=== PATIENT | male | born 1975 ===

== ENCOUNTER 2017-09-13 17:12 | Emergency (ER) | payer OTHER ==
[2017-09-13 17:19] VITALS: BP 138/94; PULSE 83; RESP 18; TEMP 97.5; O2SAT 99
[2017-09-13] MEDS ORDERED: Apap-Butalbital-Caffeine 325-50-40mg Tab PO STA (17:33)
--- NOTE | 2017-09-13 17:52 | C.PDOC ---
History Of Present Illness 42 year old male presents to ED with complaints of generalized headache for 20 days. He reports headache starts in back and goes around entire head and it feels tight. He also reports feeling tightness to his neck and shoulders, worse when he bends head down. He states headache is almost every day, has been taking Advil with temporary relief. He does not have primary doctor and denies any history of migraines or this is worst headache of his life. Denies any fever , neck stiffness, injury, vision changes, dizziness. Patient wears glasses, last had eye checkup 2 months ago Time Seen by Provider: 09/13/17 17:21 Chief Complaint (Nursing): Headache History Per: Patient History/Exam Limitations: no limitations Onset/Duration Of Symptoms: Days Current Symptoms Are (Timing): Still Present Quality: Tightness Past Medical History Reviewed: Historical Data, Nursing Documentation, Vital Signs Vital Signs: Last Vital Signs Temp 97.5 F L 09/13/17 17:17 Pulse 83 09/13/17 17:17 Resp 18 09/13/17 17:17 BP 138/94 H 09/13/17 17:17 Pulse Ox 99 09/13/17 19:00 - Medical History PMH: No Chronic Diseases Surgical History: Appendectomy Family History: States: No Known Family Hx - Social History Hx Alcohol Use: Yes Hx Substance Use: No - Immunization History Hx Tetanus Toxoid Vaccination: No Hx Influenza Vaccination: No Hx Pneumococcal Vaccination: No Review Of Systems Constitutional: Negative for: Fever, Chills, Weakness, Malaise Eyes: Negative for: Vision Change, Redness ENT: Negative for: Ear Pain, Throat Pain Cardiovascular: Negative for: Chest Pain, Palpitations Respiratory: Negative for: Cough, Shortness of Breath Gastrointestinal: Negative for: Vomiting, Abdominal Pain, Diarrhea Musculoskeletal: Positive for: Neck Pain, Shoulder Pain Skin: Negative for: Rash Neurological: Positive for: Headache. Negative for: Weakness, Numbness, Dizziness Physical Exam - Physical Exam Appears: Well, Non-toxic, No Acute Distress Skin: Warm, Dry, No Rash Head: Atraumatic, Normacephalic, No Tenderness, No Swelling Eye(s): bilateral: Normal Inspection (No nystagmus), PERRL, EOMI Ear(s): Bilateral: Normal Nose: Normal Oral Mucosa: Moist Neck: Paracervical Tenderness Cardiovascular: Rhythm Regular, No Murmur Respiratory: Normal Breath Sounds, No Rales, No Rhonchi, No Wheezing Gastrointestinal/Abdominal: Soft, No Tenderness, No Guarding, No Rebound Extremity: Bilateral: Atraumatic, Normal Color And Temperature, Normal ROM Neurological/Psych: Oriented x3, Normal Speech, Normal Cranial Nerves, No Cerebellar Signs, Normal Motor, Normal Sensation Gait: Steady ED Course And Treatment O2 Sat by Pulse Oximetry: 99 (RA) Pulse Ox Interpretation: Normal Medical Decision Making Medical Decision Making: Impression: Headache Plan: CT head Fioricet Progress: CT shows no intracranial abnormality 1844 Patient re-evaluated and reports feeling better, headache has improved.He has no fever, nuchal rigidity or neuro deficits. He denies any dizziness or vision changes. I explained Ct results and provide copy of report. He feels comfortable going home and will be discharged. Recommend analgesics and to follow up with PCP or neurology for further evaluation. Disposition Counseled Patient/Family Regarding: Diagnosis, Need For Followup, Rx Given - Disposition Referrals: [facility] [Outside] [facility] [Outside] [facility] [Outside] Disposition: HOME/ ROUTINE Disposition Time: 18:59 Condition: IMPROVED Additional Instructions: Your head CT was normal Take pain medicine as needed. Drink fluids and rest Follow up with your doctor or neurologist for further evaluation and care Tu yomi CT fue normal [place] analgsicos segn sea necesario. 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 - Scribe Statement The provider has reviewed the documentation as recorded by the Joeibanushka Wilde All medical record entries made by the Scribe were at my direction and personally dictated by me. I have reviewed the chart and agree that the record accurately reflects my personal performance of the history, physical exam, medical decision making, and the department course for this patient. I have also personally directed, reviewed, and agree with the discharge instructions and disposition.
[2017-09-13] MEDS ORDERED: Apap-Butalbital-Caffeine 325-50-40mg Tab ONE (17:53)
--- NOTE | 2017-09-13 18:15 | CT ---
PROCEDURE: CT HEAD WITHOUT CONTRAST. HISTORY: Headache for 20 days, no neuro def COMPARISON: None available. TECHNIQUE: Axial computed tomography images were obtained through the head/brain without intravenous contrast. Coronal and sagittal reconstructed images. Radiation dose: Total exam DLP = 908.65 mGy-cm. This CT exam was performed using one or more of the following dose reduction techniques: Automated exposure control, adjustment of the mA and/or kV according to patient size, and/or use of iterative reconstruction technique. FINDINGS: HEMORRHAGE: No intracranial hemorrhage. BRAIN: No mass effect or edema. No atrophy or chronic microvascular ischemic changes. VENTRICLES: Unremarkable. No hydrocephalus. CALVARIUM: Unremarkable. PARANASAL SINUSES: Unremarkable as visualized. No significant inflammatory changes. MASTOID AIR CELLS: Unremarkable as visualized. No inflammatory changes. OTHER FINDINGS: None. IMPRESSION: No acute intracranial abnormalities. No significant findings to account for the clinical presentation.
== END 2017-09-13 19:15 | disposition home or self-care (01) ==
LOC: C.ER 17:12
DX: G43.909 Migraine, unspecified, not intractable, without status migrainosus (principal)

== ENCOUNTER 2017-09-15 09:38 | Observation (INO) | payer OTHER ==
[2017-09-15 10:01] VITALS: BMI 29.5
[2017-09-15 10:06] VITALS: RESP 20
[2017-09-15] MEDS ORDERED: Aspirin 325 mg EC Tablets PO STA (10:28)
--- NOTE | 2017-09-15 10:28 | C.PDOC ---
History Of Present Illness 42 y/o male presents to ED sent from clinic for further evaluation on intermittent chest pain for 15 days and headache for 20 days. Patient states last episode of "pressure" chest pain was yesterday lasting 2 hours and took Advil with minimal relief. Today patient was at clinic and reported episode of chest pain yesterday and was sent to ED. Patient states he is compliant with medication given on 09/13/17 at ED for headache but reports no improvement and currently denies vision changes, nausea, vomiting, sob or any other complaints at this time. Time Seen by Provider: 09/15/17 10:10 Chief Complaint (Nursing): Headache History Per: Patient History/Exam Limitations: no limitations Onset/Duration Of Symptoms: Days Current Symptoms Are (Timing): Still Present Past Medical History Reviewed: Historical Data, Nursing Documentation, Vital Signs Vital Signs: Last Vital Signs Temp 97.6 F 09/15/17 10:01 Pulse 73 09/15/17 10:01 Resp 20 09/15/17 10:01 BP 118/84 09/15/17 10:01 Pulse Ox 97 09/15/17 10:43 Surgical History: Appendectomy Family History: States: No Known Family Hx - Social History Hx Alcohol Use: Yes Hx Substance Use: No - Immunization History Hx Tetanus Toxoid Vaccination: No Hx Influenza Vaccination: No Hx Pneumococcal Vaccination: No Review Of Systems Constitutional: Negative for: Fever, Chills Eyes: Negative for: Vision Change Cardiovascular: Positive for: Chest Pain Respiratory: Negative for: Cough, Shortness of Breath Gastrointestinal: Negative for: Nausea, Vomiting Neurological: Positive for: Headache. Negative for: Weakness, Numbness Physical Exam - Physical Exam Appears: Non-toxic, No Acute Distress Skin: Warm, Dry, No Rash Head: Atraumatic, Normacephalic Eye(s): bilateral: Normal Inspection Oral Mucosa: Moist Neck: Normal ROM, Supple Cardiovascular: Rhythm Regular Respiratory: Normal Breath Sounds, No Rales, No Rhonchi, No Wheezing Gastrointestinal/Abdominal: Soft, No Tenderness, No Guarding, No Rebound Extremity: Normal ROM, Capillary Refill (<2 seconds) Neurological/Psych: Oriented x3, Normal Speech, Normal Cognition, Normal Cranial Nerves, Normal Motor, Normal Sensation Gait: Steady ED Course And Treatment - Laboratory Results Result Diagrams: 09/15/17 10:56 09/15/17 11:21 ECG: Interpreted By Me ECG Rhythm: Sinus Rhythm ECG Interpretation: Normal Rate From EC (BPM) O2 Sat by Pulse Oximetry: 97 (RA) Pulse Ox Interpretation: Normal Progress - Re-Evaluation Re-evaluation Note: 09/15/17 12:17 EXAM IMPROVED D/W DR CAZARES WILL ADMIT - Data Reviewed Data Reviewed: Lab, Diagnostic imaging, EKG, Old records - Continuity of Care Discussed patient case with:: Patient, Covering for PMD Medical Decision Making Medical Decision Making: Prior records reviewed: Patient had negative CT head on 09/13/17 Disposition Counseled Patient/Family Regarding: Studies Performed, Diagnosis - Disposition Disposition: HOSPITALIZED Disposition Time: 12:17 Condition: STABLE Forms: [employer] (Faroese) - POA Present On Arrival: None - Clinical Impression Clinical Impression: Headache, Chest pain - Scribe Statement The provider has reviewed the documentation as recorded by the Scribe Kristan Wilde All medical record entries made by the Scribe were at my direction and personally dictated by me. I have reviewed the chart and agree that the record accurately reflects my personal performance of the history, physical exam, medical decision making, and the department course for this patient. I have also personally directed, reviewed, and agree with the discharge instructions and disposition. Decision To Admit - Pt Status Changed To: Hospital Disposition Of: Observation - . Bed Request Type: Telemetry Admitting Physician: Levon Cazares Patient Diagnosis: Headache, Chest pain
[2017-09-15] MEDS ORDERED: Magnesium Sulfate 1 gm in D5W 1 GM/100 ML BAG IVPB STA (10:29)
[2017-09-15] MEDS ORDERED: Sodium Chloride 0.9% 1,000 ML IV STA (10:29)
[2017-09-15] MEDS ORDERED: Magnesium Sulfate 1 gm in D5W 1 GM/100 ML BAG IVPB ONE (10:40)
[2017-09-15] MEDS ORDERED: Sodium Chloride 0.9% 1,000 ML ONE (10:40)
--- NOTE | 2017-09-15 10:47 | RAD ---
HISTORY: chest pain COMPARISON: No prior. TECHNIQUE: Chest PA and lateral FINDINGS: LUNGS: No active pulmonary disease. PLEURA: No significant pleural effusion identified. No pneumothorax apparent. CARDIOVASCULAR: Normal. OSSEOUS STRUCTURES: No significant abnormalities. VISUALIZED UPPER ABDOMEN: Normal. OTHER FINDINGS: None. IMPRESSION: No active disease.
[2017-09-15 11:14] LABS: BASO # 0.1 K/uL (0.0-0.2); BASO % 1.3 % (0.0-2.0); EOS # 0.8 K/uL (0.0-0.7); EOS % 10.8 % (0.0-4.0); HEMOGLOBIN 15.6 g/dL (12.0-18.0); LYMPH # 2.2 K/uL (1.0-4.3); LYMPH % 31.9 % (20.0-40.0); MEAN CELL VOLUME 87.9 fL (80.0-94.0); MEAN CORPUSCULAR HEMOGLOBIN 29.9 pg (27.0-31.0); MEAN PLATELET VOLUME 9.9 fL (7.2-11.7); MONO # 0.6 K/uL (0.0-0.8); MONO % 8.6 % (0.0-10.0); NEUT # 3.3 K/uL (1.8-7.0); NEUT % 47.4 % (50.0-75.0); NRBC % 0.3 % (0.0-2.0); RBC 5.21 Mil/uL (4.40-5.90); RED CELL DISTRIBUTION WIDTH 13.7 % (11.5-14.5)
[2017-09-15 11:42] LABS: BLOOD UREA NITROGEN 21 mg/dL (9-20); GFR AFRICAN-AMERICAN > 60; GFR NON-AFRICAN AMERICAN > 60
--- NOTE | 2017-09-15 15:14 | CP.PCM.HP ---
History of Present Illness - History of Present Illness History of Present Illness: Code status: Full Code No advanced directives Healthcare Proxy: Mango (girlfriend) [phone] PMD: [facility] PGY-1 H&P for Dr. Kayleen Jacobs CC: Headache This is a 42 year old male with no PMHx who comes in primarily complaining of headache. Per patient, this began a month ago. Pain initially starts on the left side of the cervical paraspinals and radiate to the head and around to the forehead in a band-like fashion. Pain is described as pressure sensation. Patient states that medications such as Tylenol or Advil provide transient reductions in pain but are not long lasting. Headaches are constant. There is no associated photophobia, phonophobia, dizziness, scintillating scotomas, or other neurological symptoms. There was one episode of nausea/vomiting reported on Wednesday. Patient also complaining of right sided chest pain. This is intermittent and was first noticed on August 26. It is also described as a pressure with radiation to the right arm. Anti-inflammatory medications such as those mentioned above do not help with his chest pain. Denies diaphoresis, palpitations, dyspnea. Patient has been experiencing this pain intermittently since then with the last episode being yesterday. Patient states no inciting factor for either his headache or chest pain. PMHx: denies PSHx: Appendectomy and hernia repair Allergies: Denies, although iodine is listed as an allergy in the EMR for some reason Social: Denies tobacco and drugs. Occasionally drinks alcohol twice a month (2- 3 drinks each time). Lives with girlfriend and is unemployed. Family Hx: Father with DM Home medications: Takes Advil as needed. Present on Admission - Present on Admission Any Indicators Present on Admission: No Review of Systems - Constitutional Constitutional: absent: Chills, Fever - EENT Eyes: absent: Change in Vision Ears: absent: Decreased Hearing Nose/Mouth/Throat: absent: Nasal Congestion - Cardiovascular Cardiovascular: Chest Pain. absent: Diaphoresis, Dyspnea, Palpitations - Respiratory Respiratory: absent: Cough, Dyspnea - Gastrointestinal Gastrointestinal: Nausea (on Wednesday), Vomiting (on Wednesday). absent: Abdominal Pain - Genitourinary Genitourinary: absent: Dysuria - Musculoskeletal Musculoskeletal: Neck Pain - Integumentary Integumentary: absent: Rash - Neurological Neurological: Headaches. absent: Dizziness, Paresthesias, Weakness - Psychiatric Psychiatric: absent: Anxiety - Endocrine Endocrine: absent: Palpitations Past Patient History - Infectious Disease Hx of Infectious Diseases: None - Past Social History Smoking Status: Never Smoked - PSYCHIATRIC Hx Substance Use: No - SURGICAL HISTORY Hx Appendectomy: Yes - ANESTHESIA Hx Anesthesia: Yes Hx Anesthesia Reactions: No Hx Malignant Hyperthermia: No Meds Allergies/Adverse Reactions: Allergies Allergy/AdvReac Type Severity Reaction Status Date / Time iodine Allergy Verified 09/13/17 17:19 Physical Exam - Constitutional Appears: No Acute Distress - Head Exam Head Exam: ATRAUMATIC, NORMOCEPHALIC - Eye Exam Eye Exam: EOMI, PERRL - ENT Exam ENT Exam: Mucous Membranes Moist - Respiratory Exam Respiratory Exam: Clear to Auscultation Bilateral, NORMAL BREATHING PATTERN. absent: Rales, Rhonchi, Wheezes - Cardiovascular Exam Cardiovascular Exam: REGULAR RHYTHM, +S1, +S2 - GI/Abdominal Exam GI & Abdominal Exam: Normal Bowel Sounds, Soft. absent: Distended, Tenderness - Extremities Exam Extremities exam: Positive for: pedal pulses present. Negative for: pedal edema , tenderness - Back Exam Back exam: muscle spasm (hypertonic trapezius muscles), paraspinal tenderness ( cervical paraspinal tenderness and hypertonicity). absent: CVA tenderness (L), CVA tenderness (R) - Neurological Exam Neurological exam: Alert, CN II-XII Intact, Oriented x3 Additional comments: Positive spurling's sign on the right - Psychiatric Exam Psychiatric exam: Normal Affect, Normal Mood - Skin Skin Exam: Dry, Warm Results - Vital Signs Recent Vital Signs: Last Vital Signs Temp 97.9 F 09/15/17 13:21 Pulse 69 09/15/17 12:55 Resp 20 09/15/17 12:55 BP 125/83 09/15/17 12:55 Pulse Ox 100 09/15/17 12:55 - Labs Result Diagrams: 09/15/17 10:56 09/15/17 11:21 Labs: Laboratory Results - last 24 hr 09/15/17 09/15/17 10:56 11:21 WBC 7.0 RBC 5.21 Hgb 15.6 Hct 45.8 MCV 87.9 MCH 29.9 MCHC 34.0 RDW 13.7 Plt Count 229 MPV 9.9 Neut % (Auto) 47.4 L Lymph % (Auto) 31.9 [place] % (Auto) 8.6 Eos % (Auto) 10.8 H Baso % (Auto) 1.3 Neut # (Auto) 3.3 Lymph # (Auto) 2.2 [place] # (Auto) 0.6 Eos # (Auto) 0.8 H Baso # (Auto) 0.1 Sodium 136 Potassium 4.2 Chloride 102 Carbon Dioxide 23 Anion Gap 16 BUN 21 H Creatinine 0.8 Est GFR ( Amer) > 60 Est GFR (Non-Af Amer) > 60 Random Glucose 95 Calcium 9.0 Magnesium 2.2 Troponin I < 0.0120 Assessment & Plan - Assessment and Plan (Free Text) Plan: Atypical Chest Pain EKG NSR without any ST changes First GIL negative f/u EKG and GIL x2 Cardiology consult, Dr. Franco, help appreciated f/u lipid panel f/u TSH f/u free T4 f/u hemoglobin A1c Tension Headache likely due to musculoskeletal issues as documented in the physical exam see assessments for somatic dysfunctions below Can give Tylenol 500 mg & Aspirin 500 mg & Caffeine 130 mg all together x 1 dose If the above combination doesn't work, then can trial Reglan 10 mg IV & Benadryl 25 mg IV x 1 dose Cervical Paraspinal Hypertonicity Sub-occipital release performed with significant relief in symptoms Trapezius Hypertonicity Muscle energy to the trapezius performed with significant relief in symptoms Positive Spurling's sign This could indicate some sort of cervical radiculopathy which may be contributing to the patient's right sided chest/arm pain. Would recommend outpatient imaging to be done through the clinic. Prophylaxis Heart Healthy 2 gm sodium diet Pepcid 20 mg PO BID SCDs Discussed with Dr. Kayleen Styles PGY-1
[2017-09-15 18:58] LABS: CK-MB 0.41 ng/mL (0.0-3.38)
--- NOTE | 2017-09-15 21:01 | CP.PCM.CON ---
History of Present Illness - History of Present Illness History of Present Illness: Re: Chest pain Presented with chest pain unrelated to exertion lasting hours in the precordial region temporally related to head 'pinches' Denied any association with ingestion inspiration Effort tolerance NYHA ii Denied syncope palpitation No significant past medical history History of appendectomy and hernia repair Does not smoke Maternal uncle had coronary artery disease Exam No distress Normal venous pressures Normal carotids Clear lungs No S3; no rub Abdomen: scar/no bruits DP ++=++ EKG: sinus Labs reviewed Past Patient History - Infectious Disease Hx of Infectious Diseases: None - Past Social History Smoking Status: Never Smoked - PSYCHIATRIC Hx Substance Use: No - SURGICAL HISTORY Hx Appendectomy: Yes - ANESTHESIA Hx Anesthesia: Yes Hx Anesthesia Reactions: No Hx Malignant Hyperthermia: No Meds Allergies/Adverse Reactions: Allergies Allergy/AdvReac Type Severity Reaction Status Date / Time iodine Allergy Verified 09/13/17 17:19 - Medications Medications: Current Medications Famotidine (Pepcid) 20 mg PO BID [place] Last Admin: 09/15/17 18:09 Dose: 20 mg Results - Vital Signs Recent Vital Signs: Last Vital Signs Temp 98.0 F 09/15/17 15:15 Pulse 62 09/15/17 15:15 Resp 20 09/15/17 15:15 BP 120/75 09/15/17 15:15 Pulse Ox 98 09/15/17 15:15 - Labs Result Diagrams: 09/15/17 10:56 09/15/17 11:21 Labs: Laboratory Results - last 24 hr 09/15/17 09/15/17 09/15/17 10:56 11:21 18:31 WBC 7.0 RBC 5.21 Hgb 15.6 Hct 45.8 MCV 87.9 MCH 29.9 MCHC 34.0 RDW 13.7 Plt Count 229 MPV 9.9 Neut % (Auto) 47.4 L Lymph % (Auto) 31.9 [place] % (Auto) 8.6 Eos % (Auto) 10.8 H Baso % (Auto) 1.3 Neut # (Auto) 3.3 Lymph # (Auto) 2.2 [place] # (Auto) 0.6 Eos # (Auto) 0.8 H Baso # (Auto) 0.1 Sodium 136 Potassium 4.2 Chloride 102 Carbon Dioxide 23 Anion Gap 16 BUN 21 H Creatinine 0.8 Est GFR ( Amer) > 60 Est GFR (Non-Af Amer) > 60 Random Glucose 95 Calcium 9.0 Magnesium 2.2 Total Creatine Kinase 76 CK-MB (Mass) 0.41 Troponin I < 0.0120 < 0.0120 Assessment & Plan - Assessment and Plan (Free Text) Assessment: Chest pain syndrome on a background of an insignificant past medical history/ vascular risk factors; unrevealing exam and EKG/Labs No suggestion of an unstable cardiovascular process Plan: Serum lipids Explore alternative sources of chest pain Trend troponin If negative DC home with an outpatient stress test
[2017-09-16 01:10] LABS: CK-MB 0.38 ng/mL (0.0-3.38)
[2017-09-16 07:08] LABS: BASO # 0.1 K/uL (0.0-0.2); BASO % 0.9 % (0.0-2.0); EOS # 0.6 K/uL (0.0-0.7); EOS % 8.8 % (0.0-4.0); LYMPH # 1.9 K/uL (1.0-4.3); LYMPH % 28.7 % (20.0-40.0); MEAN CELL VOLUME 87.8 fL (80.0-94.0); MEAN CORPUSCULAR HEMOGLOBIN 30.1 pg (27.0-31.0); MEAN CORPUSCULAR HGB CONC 34.2 g/dL (33.0-37.0); MEAN PLATELET VOLUME 9.4 fL (7.2-11.7); MONO # 0.5 K/uL (0.0-0.8); MONO % 7.9 % (0.0-10.0); NEUT # 3.6 K/uL (1.8-7.0); NEUT % 53.7 % (50.0-75.0); RED CELL DISTRIBUTION WIDTH 13.4 % (11.5-14.5); WHITE BLOOD COUNT 6.7 K/uL (4.8-10.8)
[2017-09-16 07:31] LABS: BLOOD UREA NITROGEN 21 mg/dL (9-20); CALCIUM 8.9 mg/dl (8.6-10.4); GFR AFRICAN-AMERICAN > 60; GFR NON-AFRICAN AMERICAN > 60; HDL CHOLESTEROL 36 mg/dL (30-70)
[2017-09-16 07:43] LABS: LDL CHOLESTEROL 84 mg/dL (0-129)
[2017-09-16 08:22] VITALS: PULSE 64
[2017-09-16 08:56] VITALS: BP 128/84; TEMP 98.5; O2SAT 97
--- NOTE | 2017-09-16 09:19 | CP.PCM.DIS ---
Provider - Provider Date of Admission: 09/15/17 12:18 Attending physician: Kee Jacobs D.O. Primary care physician: [facility] Consults: Cardiology Dr. Franco Time Spent in preparation of Discharge (in minutes): 40 Hospital Course - Lab Results Lab Results: Most Recent Lab Values WBC 6.7 K/uL (4.8-10.8) 09/16/17 06:57 RBC 5.00 Mil/uL (4.40-5.90) 09/16/17 06:57 Hgb 15.0 g/dL (12.0-18.0) 09/16/17 06:57 Hct 43.9 % (35.0-51.0) 09/16/17 06:57 MCV 87.8 fL (80.0-94.0) 09/16/17 06:57 MCH 30.1 pg (27.0-31.0) 09/16/17 06:57 MCHC 34.2 g/dL (33.0-37.0) 09/16/17 06:57 RDW 13.4 % (11.5-14.5) 09/16/17 06:57 Plt Count 236 K/uL (130-400) 09/16/17 06:57 MPV 9.4 fL (7.2-11.7) 09/16/17 06:57 Neut % (Auto) 53.7 % (50.0-75.0) 09/16/17 06:57 Lymph % (Auto) 28.7 % (20.0-40.0) 09/16/17 06:57 [place] % (Auto) 7.9 % (0.0-10.0) 09/16/17 06:57 Eos % (Auto) 8.8 % (0.0-4.0) H 09/16/17 06:57 Baso % (Auto) 0.9 % (0.0-2.0) 09/16/17 06:57 Neut # (Auto) 3.6 K/uL (1.8-7.0) 09/16/17 06:57 Lymph # (Auto) 1.9 K/uL (1.0-4.3) 09/16/17 06:57 [place] # (Auto) 0.5 K/uL (0.0-0.8) 09/16/17 06:57 Eos # (Auto) 0.6 K/uL (0.0-0.7) 09/16/17 06:57 Baso # (Auto) 0.1 K/uL (0.0-0.2) 09/16/17 06:57 Sodium 140 mmol/L (132-148) 09/16/17 06:57 Potassium 4.5 mmol/L (3.6-5.2) 09/16/17 06:57 Chloride 104 mmol/L (98-107) 09/16/17 06:57 Carbon Dioxide 25 mmol/L (22-30) 09/16/17 06:57 Anion Gap 15 (10-20) 09/16/17 06:57 BUN 21 mg/dL (9-20) H 09/16/17 06:57 Creatinine 0.9 mg/dL (0.8-1.5) 04 06:57 Est GFR ( Amer) > 60 09/16/17 06:57 Est GFR (Non-Af Amer) > 60 09/16/17 06:57 Random Glucose 87 mg/dL (75-110) 09/16/17 06:57 Hemoglobin A1c 5.7 % (4.2-6.5) 09/16/17 06:57 Calcium 8.9 mg/dl (8.6-10.4) 09/16/17 06:57 Magnesium 2.2 mg/dL (1.6-2.3) 09/15/17 11:21 Total Creatine Kinase 83 U/L (55-170) 09/16/17 00:44 CK-MB (Mass) 0.38 ng/mL (0.0-3.38) 09/16/17 00:44 Troponin I < 0.0120 ng/mL (0.00-0.120) 09/16/17 00:44 Triglycerides 104 mg/dL (0-149) 09/16/17 06:57 Cholesterol 160 mg/dL (0-199) 09/16/17 06:57 LDL Cholesterol Direct 84 mg/dL (0-129) 09/16/17 06:57 HDL Cholesterol 36 mg/dL (30-70) 09/16/17 06:57 - Hospital Course Hospital Course: Hospitalist Discharge Summary Patient was seen and examined at 9:00 AM 42 year old male with NO significant past medical history who was sent up from the [facility] to the ER on 09/15/17 for evaluation of Right Sided Chest Pain that had been present for past 15 days, occurring intermittently, radiating to the right arm and right upper forearm anterior lateral aspect. Patient had also been experiencing headache that was likely Tension Headache. Troponins were negative x 3, EKGs were unremarkable. He was seen by Cardiology who recommended outpatient stress test. For his Tension Headache, suboccipital release and muscle energy was performed to the right trapezius. It was noted also on exam on 09/15/17 that Spurling's maneuver was postive on the right for which he will need outpatient CT Cervical Spine and Physical Therapy. As of exam this morning, chest pain and headache have resolved. Patient is stable for discharge with further management as outpatient through the [facility]. Please see discharge instructions below. Upon FULL ROS NO dysphagia/odynopahgia NO soreness in throat NO cough NO sinus/nasal congestion NO fever/chills NO muscle aches/pains NO joint pain NO chest pain/palpations NO SOB NO abdominal pain NO n/v/d/c NO burning pain with urination NO COV[place] NO lightheadedness/dizziness NO paresthesias Exam: General: AAOX3, NAD HEENT: NCA, EOMI, PERRLA, NO cervical/supraclavicular/submandibular lymphadenopathy, NO pharyngeal erythema/exudate, Nasal Turbinates are nonerythematous/nonedematous, Oral Mucosa is moist Cardio: NS1 and NS2, NO M/R/G Resp: CTA B/L, NO R/R/W GI: BSx4, Soft, NT, NO HSM, NO guarding/rebound tenderness Ext: Pulses are strong and equal, Capillary Refill is 2 seconds, NO edema Neuro: CN II through XII are grossly intact Assessments: 1). Atypical Chest Pain: resolved. Will need outpatient stress test 2). Tension COVINGTON: resolved. Will need outpatient CT Cervical Spine due to positive Spurling's Maneuver. Cervical radiculopathy may be contributing to his Tension Headache as well as the pain in the right side of chest. Will be discharged on Rx for Excedrin Migraine. 3). Cervical Spinal Hypertonicity: improved S/P OMM 4). Trapezius Hypertonicity: improved S/P OMM 5). Spurling's Sign Positive: will need outpatient CT Cervical Spine The following instructions were explained to patient and a copy will be provided to him in Sami: 1). Please schedule follow up with the [facility] located on Floor [address] by calling [phone]. This follow up should take place in the next 7 to 10 days. 2). Through the [facility] please arrange to have the following done: Exercise Stress Test for your history of Chest Pain CT Scan of your Cervical Spine for further evaluation of the cause of your headaches and chest pain Physical Therapy for your neck 3). The following prescriptions should be filled at your pharmacy on your way home from the hospital: Excedrin 250/250/65 mg, 2 tablets by mouth at the first sign of your headache, may repeat every 6 hours as needed, Dispense #30, No refills 4). DO NOT take Fioricet 5). Please take care and be well. Kee Jacobs D.O. Discharge Exam - Head Exam Head Exam: ATRAUMATIC, NORMOCEPHALIC Discharge Plan - Follow Up Plan Condition: STABLE Disposition: HOME/ ROUTINE Additional Instructions: Patient is medically stable for discharge. Please follow-up with the clinic and attain a referral to a air valve mechanic so you may have an outpatient stress test done. This is to make sure your chest pain is not due to your heart. Please follow-up with the clinic so imaging for your neck can be done. It's possible your headache could be due to a problem in your neck - thus imaging will help to investigate that issue.
--- NOTE | 2017-09-17 07:51 | CARD ---
APPROVED REPORT EKG Measurement Heart [id number] [id number] <Conclusion> Normal sinus rhythm Normal ECG
--- NOTE | 2017-09-17 08:06 | CARD ---
APPROVED REPORT EKG Measurement Heart [id number] [id number] <Conclusion> Normal sinus rhythm Normal ECG
== END 2017-09-16 13:15 | disposition home or self-care (01) ==
LOC: C.ER 09:38 → C.9E 12:18 → C.6T 12:44
PROVIDERS: ADMIT Hospitalist; ATTEND Hospitalist
DX: R07.89 Other chest pain (principal); G44.209 Tension-type headache, unspecified, not intractable; M62.838 Other muscle spasm; Z82.49 Family history of ischemic heart disease and other diseases of the circulatory system; Z83.3 Family history of diabetes mellitus; Z90.49 Acquired absence of other specified parts of digestive tract
CPT/HCPCS: 36415; 71046; 80048; 80061; 83036; 83735; 84439; 84443; 84484; 85025; 96374; 99285; G0378; J1885; J2765; J3475; J7040

== ENCOUNTER 2017-11-01 07:23 | Emergency (ER) | payer OTHER ==
[2017-11-01 07:23] VITALS: BMI 29.5
[2017-11-01 07:35] VITALS: TEMP 97.6
[2017-11-01] MEDS ORDERED: Sodium Chloride 0.9% 1,000 ML IV ONE (07:46)
--- NOTE | 2017-11-01 07:46 | C.PDOC ---
History Of Present Illness 42-year-old male, presents to the emergency department with complaints of periumbilical pain, that he developed prior to arrival. Patient states he had a normal breakfast this morning. He has a Hx of umbilical hernia repair and appendectomy. ate eggs, platanos and roast pork prepared 2 days ago for breakfast today. Time Seen by Provider: 11/01/17 07:37 Chief Complaint (Nursing): Abdominal Pain History Per: Patient History/Exam Limitations: no limitations Past Medical History Reviewed: Historical Data, Nursing Documentation, Vital Signs Vital Signs: Last Vital Signs Temp 97.6 F 11/01/17 07:32 Pulse 77 11/01/17 10:20 Resp 18 11/01/17 10:20 BP 124/83 11/01/17 10:20 Pulse Ox 100 11/01/17 11:19 Surgical History: Appendectomy Family History: States: No Known Family Hx - Social History Hx Alcohol Use: No Hx Substance Use: No - Immunization History Hx Tetanus Toxoid Vaccination: No Hx Influenza Vaccination: No Hx Pneumococcal Vaccination: No Physical Exam - Physical Exam Appears: Non-toxic, No Acute Distress Skin: Normal Color, Warm, Dry, No Rash Head: Normacephalic Eye(s): bilateral: PERRL Nose: Normal Oral Mucosa: Moist Lips: Normal Appearing Neck: Normal ROM ED Course And Treatment - Laboratory Results Result Diagrams: 11/01/17 07:59 11/01/17 07:59 Lab Interpretation: Normal (ua neg.) O2 Sat by Pulse Oximetry: 100 (RA) Pulse Ox Interpretation: Normal - Radiology CXR: Interpreted by Me CXR Interpretation: Yes: No Acute Disease - Other Rad abd x 2 X-Ray: Interpreted by Me, Read By Radiologist (? few small bowel loops) Reevaluation Time: 11:20 Reassessment Condition: Improved (belly benign) Medical Decision Making Medical Decision Making: PROCEDURE: NASOGASTROSTRIC TUBE PLACEMENT Performed by the emergency provider Consent: Discussion of the risks, benefits, and alternatives to the procedure, along with informed consent was precluded by the urgency of the procedure and the patient condition. Timeout: A timeout to verify the correct patient, procedure, and site was performed immediately prior to the procedure. Gastrostomy Tube Size: 16 Liberian Confirmation: Gastrostomy tube placement was verified by CXR Post-procedure:Patient tolerated the procedure well with no immediate complications 1120: more likely indigestion eating a heavy meal of eggs, platanos and 2-day- old roast pork for breakfast normal labs/UA/CT defer obs as pt's symptoms resolved, belly benign. Disposition Doctor Will See Patient In The: Office Counseled Patient/Family Regarding: Studies Performed, Diagnosis - Disposition Disposition: HOME/ ROUTINE Disposition Time: 11:21 Condition: GOOD Forms: [facility] (Libyan) - Clinical Impression Clinical Impression: Vomiting - Scribe Statement The provider has reviewed the documentation as recorded by the Scribe (Abdulaziz Ramos) All medical record entries made by the Scribe were at my direction and personally dictated by me. I have reviewed the chart and agree that the record accurately reflects my personal performance of the history, physical exam, medical decision making, and the department course for this patient. I have also personally directed, reviewed, and agree with the discharge instructions and disposition.
[2017-11-01 08:03] LABS: BASO # 0.1 K/uL (0.0-0.2); BASO % 1.3 % (0.0-2.0); EOS # 0.4 K/uL (0.0-0.7); EOS % 6.4 % (0.0-4.0); HEMOGLOBIN 15.2 g/dL (12.0-18.0); LYMPH # 1.7 K/uL (1.0-4.3); LYMPH % 24.7 % (20.0-40.0); MEAN CELL VOLUME 87.1 fL (80.0-94.0); MEAN CORPUSCULAR HEMOGLOBIN 30.3 pg (27.0-31.0); MEAN CORPUSCULAR HGB CONC 34.9 g/dL (33.0-37.0); MEAN PLATELET VOLUME 9.2 fL (7.2-11.7); MONO # 0.4 K/uL (0.0-0.8); MONO % 5.3 % (0.0-10.0); NEUT # 4.3 K/uL (1.8-7.0); NEUT % 62.3 % (50.0-75.0); RBC 5.02 Mil/uL (4.40-5.90); WHITE BLOOD COUNT 6.9 K/uL (4.8-10.8)
[2017-11-01] MEDS ORDERED: Morphine 4 MG/ML VIAL ONE (08:05)
[2017-11-01] MEDS ORDERED: Sodium Chloride 0.9% 1,000 ML ONE (08:05)
[2017-11-01 08:23] LABS: ALBUMIN 4.1 g/dL (3.5-5.0); ALT/SGPT 60 U/L (21-72); AST/SGOT 57 U/L (17-59); BLOOD UREA NITROGEN 25 mg/dL (9-20); GFR AFRICAN-AMERICAN > 60; GFR NON-AFRICAN AMERICAN > 60; LIPASE 70 U/L (23-300)
--- NOTE | 2017-11-01 08:29 | RAD ---
PROCEDURE: Radiographs of the chest and abdomen (obstructive series) HISTORY: abd pain COMPARISON: No prior. TECHNIQUE: AP radiograph of the chest, with upright and supine radiographs of the abdomen. FINDINGS: CHEST: Lungs: Clear. Cardiovascular: Normal size heart. No pulmonary vascular congestion. Pleura: No pleural fluid. No pneumothorax. Other findings: None. ABDOMEN AND PELVIS: Bowel: Unremarkable bowel gas pattern. No evidence of mechanical obstruction. Nasogastric tube extends to left upper quadrant of abdomen. Free air: None. Bones: Unremarkable. Other findings: None. IMPRESSION: No infiltrate. No evidence of bowel obstruction.
[2017-11-01 08:32] LABS: CALCIUM 9.6 mg/dl (8.6-10.4)
[2017-11-01 10:24] VITALS: RESP 18
[2017-11-01 10:33] LABS: URINE BILIRUBIN NEGATIVE (NEGATIVE); URINE BLOOD NEGATIVE (NEGATIVE); URINE CLARITY Clear (Clear); URINE COLOR Yellow (YELLOW); URINE GLUCOSE (UA) NORMAL (Normal); URINE LEUKOCYTE ESTERASE NEG Leu/uL (Negative); URINE PROTEIN 1+ mg/dL (NEGATIVE); URINE UROBILINOGEN NORMAL mg/dL (0.2-1.0)
--- NOTE | 2017-11-01 11:00 | CT ---
PROCEDURE: CT abdomen pelvis dated 11/01/2017 HISTORY: Periumbilical pain with history of umbilical surgery. Questionable SBO. COMPARISON: No prior study available comparison however correlation made with prior obstructive series earlier same day TECHNIQUE: Contiguous helical/transaxial images of the abdomen and pelvis. Oral contrast was administered. No IV contrast given. Coronal and Sagittal reformats generated. This CT exam was performed using one or more of the following dose reduction techniques: Automated exposure control, adjustment of the mA and/or kV according to patient size, and/or use of iterative reconstruction technique. Radiation dose: Total exam DLP = 535.26 mGy-cm FINDINGS: LOWER THORAX: Mild passive/dependent type atelectasis both lung bases. No effusion or basilar pneumothorax. The heart is mildly enlarged. No significant pericardial effusion. In situ NGT the tip of which lies within the stomach. LIVER: Liver is mildly enlarged measuring nearly 20 cm in CC dimension. No obvious hepatic mass or collection. GALLBLADDER AND BILE DUCTS: Intraluminal gallbladder calculi are present. PANCREAS: Visualized portions of the pancreas appears slightly atrophic and fatty replaced. No obvious pancreatic masses collections or calcifications. SPLEEN: The spleen exhibits normal size and attenuation pattern without mass collection or calcification. ADRENALS: No adrenal lesions. KIDNEYS AND URETERS: Kidneys demonstrate relatively symmetric size. No evidence of nephrolithiasis or hydronephrosis. BLADDER: Urinary bladder is physiologically distended. No evidence of intraluminal urinary bladder calculi. REPRODUCTIVE: Unremarkable. Prostate gland unremarkable. APPENDIX: The appendix is not seen with complete certainty however no obvious inflammatory changes right lower quadrant of the abdomen. BOWEL: Evaluation of the bowel is limited due to the lack of circulating intravenous contrast material. . The stomach is incompletely distended with food debris liquid and air. In situ NGT is present. Visualized loops of small bowel exhibit normal contour and caliber. No evidence of acute mechanical small bowel obstruction. Scattered colonic diverticula are present. . There is collapse of most of the colon of which in part presumably accounts for slight wall thickening, along with under opacified stool and peristalsis, particularly at the level of the proximal transverse colon region. While there no inflammatory changes in the surrounding mesenteric, the possibility of a mild nonspecific inflammatory process such is a colitis or diverticulitis cannot be completely excluded. Clinical correlation recommended PERITONEUM: Unremarkable. No fluid collection. No free air. . LYMPH NODES: Unremarkable. No enlarged lymph nodes. VASCULATURE: Unremarkable. No aortic aneurysm. BONES: Minor multilevel degenerative spondylosis of the lower thoracic and lumbar spine. There are no acute compression fractures no retropulsed fragments. OTHER FINDINGS: None. IMPRESSION: Cholelithiasis. Hepatomegaly. Bibasilar atelectasis. In situ NGT. No evidence of acute mechanical bowel obstruction. Scattered colonic diverticula are present. . There is collapse of most of the colon of which in part presumably accounts for slight wall thickening, along with under opacified stool and peristalsis, particularly at the level of the proximal transverse colon region. While there no inflammatory changes in the surrounding mesenteric, the possibility of a mild nonspecific inflammatory process such is a colitis or diverticulitis cannot be completely excluded. Clinical correlation recommended
[2017-11-01 11:27] VITALS: BP 124/84; PULSE 78; O2SAT 99
--- NOTE | 2017-11-02 12:31 | CARD ---
APPROVED REPORT EKG Measurement Heart [id number] [id number] <Conclusion> Normal sinus rhythm Minimal voltage criteria for LVH, may be normal variant Nonspecific T wave abnormality Abnormal ECG
== END 2017-11-01 11:34 | disposition home or self-care (01) ==
LOC: C.ER 07:23
DX: R11.10 Vomiting, unspecified (principal)
CPT/HCPCS: 74022; 74176; 80053; 81001; 83690; 85025; 93005; 96361; 96374; 99285; J2270; J7040

== ENCOUNTER 2017-11-08 14:36 | Emergency (ER) | payer OTHER ==
[2017-11-08 14:36] VITALS: BMI 29.5
[2017-11-08 14:44] VITALS: TEMP 98.3
[2017-11-08] MEDS ORDERED: Sodium Chloride 0.9% 1,000 ML IV ONE (15:18)
[2017-11-08] MEDS ORDERED: Sodium Chloride 0.9% 1,000 ML ONE (15:25)
[2017-11-08 15:34] LABS: BASO # 0.1 K/uL (0.0-0.2); EOS # 0.8 K/uL (0.0-0.7); EOS % 9.7 % (0.0-4.0); HEMOGLOBIN 14.8 g/dL (12.0-18.0); LYMPH # 1.9 K/uL (1.0-4.3); LYMPH % 22.3 % (20.0-40.0); MEAN CELL VOLUME 87.7 fL (80.0-94.0); MEAN CORPUSCULAR HEMOGLOBIN 30.2 pg (27.0-31.0); MEAN CORPUSCULAR HGB CONC 34.4 g/dL (33.0-37.0); MEAN PLATELET VOLUME 9.1 fL (7.2-11.7); MONO # 0.7 K/uL (0.0-0.8); MONO % 8.2 % (0.0-10.0); NEUT # 4.9 K/uL (1.8-7.0); NEUT % 58.8 % (50.0-75.0); RBC 4.91 Mil/uL (4.40-5.90); RED CELL DISTRIBUTION WIDTH 13.3 % (11.5-14.5); WHITE BLOOD COUNT 8.3 K/uL (4.8-10.8)
[2017-11-08 15:56] LABS: ALBUMIN 3.9 g/dL (3.5-5.0); ALT/SGPT 82 U/L (21-72); AST/SGOT 50 U/L (17-59); BLOOD UREA NITROGEN 22 mg/dL (9-20); CALCIUM 8.9 mg/dl (8.6-10.4); GFR AFRICAN-AMERICAN > 60; GFR NON-AFRICAN AMERICAN > 60; LIPASE 88 U/L (23-300)
--- NOTE | 2017-11-08 16:07 | C.PDOC ---
History Of Present Illness 42-year-old male, presents to the emergency department with complaints of right sided abdominal pain, that started one hour prior to arrival. Patient states he had two episodes of non-bloody/non-bilious vomiting. Patient has a Hx of appendectomy and hernia repair. Chief Complaint (Nursing): Abdominal Pain History Per: Patient History/Exam Limitations: no limitations Past Medical History Reviewed: Historical Data, Nursing Documentation, Vital Signs Vital Signs: Last Vital Signs Temp 98.3 F 11/08/17 14:42 Pulse 64 11/08/17 17:42 Resp 18 11/08/17 17:42 BP 120/80 11/08/17 17:42 Pulse Ox 97 11/08/17 17:42 Surgical History: Appendectomy Family History: States: No Known Family Hx - Social History Hx Alcohol Use: No Hx Substance Use: No - Immunization History Hx Tetanus Toxoid Vaccination: No Hx Influenza Vaccination: No Hx Pneumococcal Vaccination: No Review Of Systems Constitutional: Negative for: Fever, Chills Cardiovascular: Negative for: Chest Pain Respiratory: Negative for: Shortness of Breath Gastrointestinal: Positive for: Abdominal Pain. Negative for: Vomiting Musculoskeletal: Negative for: Back Pain Skin: Negative for: Rash Neurological: Negative for: Weakness, Numbness, Headache, Dizziness Physical Exam - Physical Exam Appears: Non-toxic, No Acute Distress Skin: Normal Color, Warm, Dry, No Rash Head: Normacephalic Eye(s): bilateral: PERRL Nose: Normal Oral Mucosa: Moist Lips: Normal Appearing Neck: Normal ROM Chest: Symmetrical Cardiovascular: Rhythm Regular, No Murmur Respiratory: Normal Breath Sounds, No Accessory Muscle Use Gastrointestinal/Abdominal: Soft, No Tenderness, No Guarding, No Rebound, Other (midline and RLQ, healed surgical incision scar. ) Extremity: Normal ROM, No Deformity, No Swelling Neurological/Psych: Oriented x3, Normal Speech ED Course And Treatment - Laboratory Results Result Diagrams: 11/08/17 15:30 11/08/17 15:30 O2 Sat by Pulse Oximetry: 98 (RA) Pulse Ox Interpretation: Normal Disposition - Disposition Referrals: Efra Welch, [Non-Staff] - Disposition: HOME/ ROUTINE Disposition Time: 17:30 Condition: GOOD Additional Instructions: Thank you for letting us take care of you today. The emergency medical care you received today was directed at your acute symptoms. If you were prescribed any medication, please fill it and take as directed. It may take several days for your symptoms to resolve. Return to the Emergency Department if your symptoms worsen, do not improve, or if you have any other problems. Please contact your doctor or call one of the physicians/clinics you have been referred to that are listed on the Patient Visit Information form that is included in your discharge packet. Bring any paperwork you were given at discharge with you along with any medications you are taking to your follow up visit. Our treatment cannot replace ongoing medical care by a primary care provider (PCP) outside of the emergency department. Thank you for allowing the [facility] team to be part of your care today. Follow up with your doctor in 1-2 days for re-evaluation and further management. [place] por dejarnos atenderlo hoy. La atencin mdica de emergencia que recibi hoy estaba dirigida a hui sntomas agudos. Si le prescribieron algn medicamento, llnelo y tome segn las indicaciones. Hui sntomas pueden tardar varios thompson en resolverse. Regrese al Departamento de Emergencia si hui s ntomas empeoran, no mejoran o si tiene algn otro problema. Comunquese con quigley mdico o llame a екатерина de los mdicos / clnicas a los que donald sido referido que figura en el formulario de Informacin de visita del paciente que se incluye en quigley paquete de angelo. Traiga todos los documentos que recibi al momento del angelo junto con los medicamentos que est tomando en quigley visita de seguimiento. Nuestro tratamiento no puede reemplazar la atencin mdica en curso por parte de un proveedor de atencin primaria (PCP) fuera del departamento de emergencias. [place] por permitir que el equipo de [facility] sea parte de quigley cuidado hoy. Gokul un seguimiento con quigley mdico en 1-2 thompson para juan carlos reevaluacin y administracin adicional. Prescriptions: Docusate [Colace] 100 mg PO Q8 PRN #20 cap PRN Reason: Constipation Instructions: Constipation, Adult (DC) Forms: Gen Discharge Inst Malaysian Print Language: ECUADOREAN - Clinical Impression Clinical Impression: Constipation - Scribe Statement The provider has reviewed the documentation as recorded by the Scribe (Abdulaziz Ramos) All medical record entries made by the Scribe were at my direction and personally dictated by me. I have reviewed the chart and agree that the record accurately reflects my personal performance of the history, physical exam, medical decision making, and the department course for this patient. I have also personally directed, reviewed, and agree with the discharge instructions and disposition.
[2017-11-08 16:11] LABS: URINE BILIRUBIN NEGATIVE (NEGATIVE); URINE BLOOD NEGATIVE (NEGATIVE); URINE CLARITY Clear (Clear); URINE COLOR Yellow (YELLOW); URINE GLUCOSE (UA) NORMAL (Normal); URINE LEUKOCYTE ESTERASE NEG Leu/uL (Negative); URINE PROTEIN 1+ mg/dL (NEGATIVE); URINE UROBILINOGEN NORMAL mg/dL (0.2-1.0)
--- NOTE | 2017-11-08 17:30 | CT ---
PROCEDURE: CT Abdomen and Pelvis without intravenous contrast HISTORY: right side abd pain COMPARISON: None. TECHNIQUE: Helical CT of the abdomen and pelvis was performed without oral or intravenous contrast as per referring physician request. Contrast dose: None Radiation dose: Total exam DLP = 576.10 mGy-cm. This CT exam was performed using one or more of the following dose reduction techniques: Automated exposure control, adjustment of the mA and/or kV according to patient size, and/or use of iterative reconstruction technique. FINDINGS: LOWER THORAX: Resolution of prior bibasilar dependent atelectasis. LIVER: Unremarkable. No gross lesion or ductal dilatation. GALLBLADDER AND BILE DUCTS: Variable cholelithiasis is noted in the gallbladder lumen which is otherwise unremarkable. PANCREAS: Unremarkable. No gross lesion or ductal dilatation. SPLEEN: Unremarkable. ADRENALS: Unremarkable. No mass. KIDNEYS AND URETERS: Unremarkable. No hydronephrosis. No solid mass. VASCULATURE: Unremarkable. No aortic aneurysm. BOWEL: Nonobstructive bowel gas pattern. Limited retained fecal material seen in the colon. Large small bowel largely collapsed at left colonic diverticulosis stable in appearance primarily at the sigmoid segment. APPENDIX: Nonvisualized appendix and nonacute right lower quadrant. PERITONEUM: Unremarkable. No free fluid. No free air. LYMPH NODES: Unremarkable. No enlarged lymph nodes. BLADDER: Unremarkable. REPRODUCTIVE: Unremarkable. BONES: No acute fracture. OTHER FINDINGS: None. IMPRESSION: 1. Stable nonacute bilateral kidneys. No radiodense urolithiasis bilaterally once again as compared to prior abdomen and pelvis CT without contrast 11/01/2017. 2. Cholelithiasis reiterated. 3. Nonvisualized appendix. No interval acute right lower quadrant pathology appreciable.
[2017-11-08 17:43] VITALS: BP 120/80; PULSE 64; RESP 18
[2017-11-08 22:44] VITALS: O2SAT 98
== END 2017-11-08 18:45 | disposition home or self-care (01) ==
LOC: C.ER 14:36
DX: K59.00 Constipation, unspecified (principal)
CPT/HCPCS: 74176; 80053; 81001; 83690; 85025; 87086; 96360; 99283; J7030

== ENCOUNTER 2017-12-15 06:29 | Emergency (ER) | payer OTHER ==
[2017-12-15 06:29] VITALS: BMI 29.5
[2017-12-15 06:38] VITALS: RESP 18
[2017-12-15 07:07] LABS: BASO # 0.1 K/uL (0.0-0.2); MEAN PLATELET VOLUME 9.4 fL (7.2-11.7); MONO # 0.6 K/uL (0.0-0.8); NEUT # 4.3 K/uL (1.8-7.0); NRBC % 0.1 % (0.0-2.0)
[2017-12-15 07:10] LABS: BASO % 1.3 % (0.0-2.0); EOS # 0.5 K/uL (0.0-0.7); EOS % 6.9 % (0.0-4.0); HEMOGLOBIN 14.7 g/dL (12.0-18.0); LYMPH # 2.1 K/uL (1.0-4.3); MEAN CELL VOLUME 87.2 fL (80.0-94.0); MEAN CORPUSCULAR HEMOGLOBIN 30.1 pg (27.0-31.0); MEAN CORPUSCULAR HGB CONC 34.5 g/dL (33.0-37.0); MONO % 7.6 % (0.0-10.0); NEUT % 56.2 % (50.0-75.0); RBC 4.89 Mil/uL (4.40-5.90); RED CELL DISTRIBUTION WIDTH 13.6 % (11.5-14.5); WHITE BLOOD COUNT 7.6 K/uL (4.8-10.8)
[2017-12-15 07:22] LABS: ALB/GLOB RATIO 1.3 (1.0-2.1); ALBUMIN 4.3 g/dL (3.5-5.0); ALT/SGPT 74 U/L (21-72); AST/SGOT 77 U/L (17-59); BLOOD UREA NITROGEN 25 mg/dL (9-20); CALCIUM 8.8 mg/dl (8.6-10.4); GFR AFRICAN-AMERICAN > 60; GFR NON-AFRICAN AMERICAN > 60
[2017-12-15] MEDS ORDERED: Sodium Chloride 0.9% 1,000 ML IV ONE (07:26)
[2017-12-15] MEDS ORDERED: Sodium Chloride 0.9% 1,000 ML ONE (07:38)
--- NOTE | 2017-12-15 07:42 | C.PDOC ---
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 Patient states that he has associated nausea and constipation. Patient reports that his last bm was yesterday but it was small. Denies having vomiting, diarrhea, dysuria, hematuria, and fever. Patient reports that he has a history of hernia repair ( 20 years ago). Time Seen by Provider: 12/15/17 07:05 Chief Complaint (Nursing): Abdominal Pain History Per: Patient History/Exam Limitations: no limitations Onset/Duration Of Symptoms: Hrs Current Symptoms Are (Timing): Still Present Severity: Moderate Past Medical History Reviewed: Historical Data, Nursing Documentation, Vital Signs Vital Signs: Last Vital Signs Temp 98.4 F 12/15/17 08:17 Pulse 86 12/15/17 08:17 Resp 18 12/15/17 08:17 BP 128/76 12/15/17 08:17 Pulse Ox 97 12/15/17 18:33 - Medical History PMH: No Chronic Diseases Surgical History: Appendectomy, Hernia Repair (20 years ago) Family History: States: No Known Family Hx - Social History Hx Alcohol Use: Yes Hx Substance Use: No - Immunization History Hx Tetanus Toxoid Vaccination: No Hx Influenza Vaccination: No Hx Pneumococcal Vaccination: No Review Of Systems Except As Marked, All Systems Reviewed And Found Negative. Constitutional: Negative for: Fever, Chills Gastrointestinal: Positive for: Nausea, Abdominal Pain, Constipation. Negative for: Vomiting, Diarrhea Genitourinary: Negative for: Dysuria, Hematuria Physical Exam - Physical Exam Appears: Non-toxic, Other (mild discomfort) Skin: Normal Color, Warm, Dry Head: Atraumatic, Normacephalic Eye(s): bilateral: Normal Inspection Nose: Normal Oral Mucosa: Moist Neck: Supple Chest: Symmetrical Cardiovascular: Rhythm Regular Respiratory: Normal Breath Sounds, No Rales, No Rhonchi, No Wheezing Gastrointestinal/Abdominal: Soft, Tenderness (mild diffuse tenderness), No Guarding, No Rebound, Other ((-) Lopes's, ( -) McBurney's, midline surgical scar below umbilicus) Extremity: Normal ROM Neurological/Psych: Oriented x3, Normal Speech ED Course And Treatment - Laboratory Results Result Diagrams: 12/15/17 07:04 12/15/17 07:04 O2 Sat by Pulse Oximetry: 97 (RA) Pulse Ox Interpretation: Normal - Other Rad Abd. Obs. Series X-Ray: Viewed By Me, Read By Radiologist Interpretation: PROCEDURE: Radiographs of the chest and abdomen (obstructive series). HISTORY: abd pain, nausea. COMPARISON: Obstructive series performed 11/01/2017. TECHNIQUE: AP radiograph of the chest, with upright and supine radiographs of the abdomen. FINDINGS: CHEST: Lungs: Clear. Cardiovascular: Normal size heart. No pulmonary vascular congestion. Pleura: No pleural fluid. No pneumothorax. Other findings: None. ABDOMEN AND PELVIS: Bowel: Unremarkable bowel gas pattern. No evidence of mechanical obstruction. Free air: None. Bones: Stable sclerosis of the medial heads of the clavicular heads. Other findings: None. IMPRESSION: Unremarkable radiographs of chest and abdomen. No evidence of mechanical bowel obstruction. Progress Note: Labs, UA, and Abd. Obs. Series ordered. Patient treated with IV Fluids and Toradol IV. Disposition Counseled Patient/Family Regarding: Studies Performed, Diagnosis, Need For Followup, Rx Given - Disposition Referrals: [facility] [Outside] Disposition: HOME/ ROUTINE Disposition Time: 08:20 Condition: STABLE Additional Instructions: FOLLOW UP WITH YOUR DOCTOR/CLINIC IN 1-2 DAYS USE MEDICATIONS DIRECTED DRINK PLENTY OF WATER AND INCREASE FIBER IN YOUR DIET RETURN TO EMERGENCY ROOM IF SYMPTOMS WORSEN SEGUIMIENTO CON BOBO MDICO / CLNICA EN 1-2 KRISHNAMURTHY USE MEDICAMENTOS SEGN LO INDICADO JANEL ABUNDANTE AGUA E INCREMENTA LA FIBRA EN BOBO DIETA REGRESE AL BRENDEN DE EMERGENCIA SI LOS SNTOMAS EMPEORAN Prescriptions: Docusate [Colace] 100 mg PO DAILY #30 cap Magnesium Citrate [Citrate of Mag] 300 ml PO ONCE PRN #1 bottle PRN Reason: Constipation Instructions: High Fiber Diet, Constipation, Adult (DC) Forms: [employer] (Bhutanese) Print Language: INDONESIAN - Clinical Impression Clinical Impression: Constipation, Abdominal pain - Scribe Statement The provider has reviewed the documentation as recorded by the Joeibanushka Prieto Provider Attestation: All medical record entries made by the Scribe were at my direction and personally dictated by me. I have reviewed the chart and agree that the record accurately reflects my personal performance of the history, physical exam, medical decision making, and the department course for this patient. I have also personally directed, reviewed, and agree with the discharge instructions and disposition.
[2017-12-15 07:59] LABS: SQUAMOUS EPITHIAL < 1 /hpf (0-5); URINE BILIRUBIN NEGATIVE (NEGATIVE); URINE BLOOD NEGATIVE (NEGATIVE); URINE CLARITY Clear (Clear); URINE COLOR Yellow (YELLOW); URINE GLUCOSE (UA) NORMAL (Normal); URINE LEUKOCYTE ESTERASE NEG Leu/uL (Negative); URINE PROTEIN 1+ mg/dL (NEGATIVE)
[2017-12-15] MEDS ORDERED: Magnesium Citrate Oral SOL (300 ml) PO ONE (08:04)
[2017-12-15] MEDS ORDERED: Magnesium Citrate Oral SOL (300 ml) ONE (08:13)
[2017-12-15 08:17] VITALS: BP 128/76; PULSE 86; TEMP 98.4
[2017-12-15 08:26] VITALS: O2SAT 97
--- NOTE | 2017-12-15 10:24 | RAD ---
PROCEDURE: Radiographs of the chest and abdomen (obstructive series) HISTORY: abd pain, nausea COMPARISON: Obstructive series performed 11/01/2017. TECHNIQUE: AP radiograph of the chest, with upright and supine radiographs of the abdomen. FINDINGS: CHEST: Lungs: Clear. Cardiovascular: Normal size heart. No pulmonary vascular congestion. Pleura: No pleural fluid. No pneumothorax. Other findings: None. ABDOMEN AND PELVIS: Bowel: Unremarkable bowel gas pattern. No evidence of mechanical obstruction. Free air: None. Bones: Stable sclerosis of the medial heads of the clavicular heads. Other findings: None. IMPRESSION: Unremarkable radiographs of chest and abdomen. No evidence of mechanical bowel obstruction.
== END 2017-12-15 08:37 | disposition home or self-care (01) ==
LOC: SUPCPDRO 06:29 → C.ER 06:29
DX: K59.00 Constipation, unspecified (principal); R10.13 Epigastric pain
CPT/HCPCS: 74022; 80053; 81001; 85025; 96361; 96374; 99285; J1885; J7030

== ENCOUNTER 2018-04-26 08:26 | Emergency (ER) | payer OTHER ==
[2018-04-26 08:26] VITALS: BMI 29.5
--- NOTE | 2018-04-26 09:04 | C.PDOC ---
History Of Present Illness 42 y/o male presents to the ED complaining of epigastric pain for 1 hour. Pain is described as localized, non-radiating. No associated nausea or vomiting. Patient cannot recall when last bowel movement was. +PSH. Patient was previously seen in the ED for similar complaint, and diagnosed with constipation. <Joan Roy - Last Filed: 04/26/18 12:46> History Per: Patient History/Exam Limitations: no limitations Onset/Duration Of Symptoms: Hrs Current Symptoms Are (Timing): Still Present Location Of Pain/Discomfort: Epigastric Radiation Of Pain To:: None Quality Of Discomfort: "Pain" <KirillJoan - Last Filed: 04/26/18 12:46> <Lauryn Mayers - Last Filed: 04/26/18 16:29> Time Seen by Provider: 04/26/18 08:56 Chief Complaint (Nursing): Abdominal Pain Past Medical History Reviewed: Historical Data, Nursing Documentation, Vital Signs Vital Signs: Last Vital Signs Temp 98.1 F 04/26/18 08:32 Pulse 80 04/26/18 08:32 Resp 20 04/26/18 08:32 BP 161/119 H 04/26/18 08:32 Pulse Ox 100 04/26/18 08:32 - Medical History PMH: No Chronic Diseases Surgical History: Appendectomy, Hernia Repair (20 years ago) Family History: States: No Known Family Hx - Social History Hx Alcohol Use: Yes Hx Substance Use: No - Immunization History Hx Tetanus Toxoid Vaccination: No Hx Influenza Vaccination: No Hx Pneumococcal Vaccination: No <Joan Roy - Last Filed: 04/26/18 12:46> Vital Signs: Last Vital Signs Temp 98.7 F 04/26/18 15:00 Pulse 63 04/26/18 15:00 Resp 18 04/26/18 15:00 BP 116/81 04/26/18 15:00 Pulse Ox 100 04/26/18 15:00 <Lauryn Mayers - Last Filed: 04/26/18 16:29> Review Of Systems Except As Marked, All Systems Reviewed And Found Negative. Constitutional: Negative for: Fever, Chills, Sweats Respiratory: Negative for: Shortness of Breath Gastrointestinal: Positive for: Abdominal Pain. Negative for: Nausea, Vomiting, Diarrhea, Hematochezia Genitourinary: Negative for: Dysuria, Frequency Musculoskeletal: Negative for: Back Pain <Joan Roy - Last Filed: 04/26/18 12:46> Physical Exam - Physical Exam Appears: Non-toxic, In Acute Distress (moderate painful distress) Skin: Normal Color, Warm, Dry Head: Atraumatic, Normacephalic Eye(s): bilateral: Normal Inspection, PERRL, EOMI Oral Mucosa: Moist Neck: Normal ROM Chest: Symmetrical Cardiovascular: Rhythm Regular, No Murmur Respiratory: Normal Breath Sounds, No Accessory Muscle Use Gastrointestinal/Abdominal: Soft, Tenderness (epigastric), No Guarding, No Rebound Back: No CVA Tenderness, No Vertebral Tenderness Extremity: Bilateral: Atraumatic, Normal Color And Temperature Pulses: Left Radial: Normal, Right Radial: Normal Neurological/Psych: Oriented x3, Normal Speech <Joan Roy Filed: 04/26/18 12:46> ED Course And Treatment - Laboratory Results Result Diagrams: 04/26/18 09:40 04/26/18 09:40 ECG: Interpreted By Me ECG Rhythm: Sinus Rhythm Rate From EC (bpm) O2 Sat by Pulse Oximetry: 100 (RA) Pulse Ox Interpretation: Normal - CT Scan/US CT Abd/Pelvis Other Rad Studies (CT/US): Read By Radiologist, Radiology Report Reviewed CT/US Interpretation: Accession No. : [id number]. Patient Name / ID : TRAVIS AUSTIN / [id number]. Exam Date : 04/26/2018 11:33:53 ( Approved ). Study Comment : Sex / Age : M / 42Y. Creator : Tere Hardin. Dictator : Maria Luisa Melgar MD. Bag Sealer : Vendette : Maria Luisa Melgar MD. Approver2 : Report Date : 04/26/2018 11:54:52. My Comment : . PROCEDURE: CT Abdomen and Pelvis without IV contrast. HISTORY: abd pain RO OBSTRUCTION. COMPARISON: CT abdomen and pelvis without contrast performed 11/08/17. TECHNIQUE: Contiguous axial images of the abdomen and pelvis. Oral contrast was administered. No IV contrast given. Coronal and Sagittal reformats generated and reviewed. Radiation dose: Total exam DLP = 756.33 mGy-cm. This CT exam was performed using one or more of the following dose reduction techniques: Automated exposure control, adjustment of the mA and/or kV according to patient size, and/or use of iterative reconstruction technique. FINDINGS: There is limited evaluation of the solid organs without the administration of IV contrast. LOWER THORAX: No visible consolidation, pleural effusion, or pneumothorax. Visualized portions of the heart appear within normal limits of size. LIVER: Unremarkable unenhanced appearance. GALLBLADDER AND BILE DUCTS: Cholelithiasis. PANCREAS: Unre markable unenhanced appearance. SPLEEN: Unremarkable unenhanced appearance. ADRENALS: Unremarkable unenhanced appearance. KIDNEYS AND URETERS: No hydronephrosis or obstructing renal calculus. BLADDER: The urinary bladder appears unremarkable. REPRODUCTIVE: Unremarkable. APPENDIX: The appendix is not identified. No secondary signs of acute appendicitis. BOWEL: The stomach is nondistended. The bowel loops appear within normal limits of caliber without evidence of intestinal obstruction. PERITONEUM: No significant free fluid. No definite free air. LYMPH NODES: No bulky lymphadenopathy identified. VASCULATURE: No aortic aneurysm. BONES: Degenerative changes of the spine. OTHER FINDINGS: None. IMPRESSION: Cholelithiasis. <Joan Roy - Last Filed: 04/26/18 12:46> - Laboratory Results Result Diagrams: 04/26/18 09:40 04/26/18 09:40 <Lauryn Mayers - Last Filed: 04/26/18 16:29> Progress - Data Reviewed Data Reviewed: Lab, Diagnostic imaging, Old records <Joan Roy - Last Filed: 04/26/18 12:46> Medical Decision Making Medical Decision Making: Impression: Epigastric pain Plan: --CT Abd/Pelvis --CMP --Lipase --CBC --Morphine 4 mg IVP --Zofran 4 mg IVP --Reassess Barium sulfate 900ml PO given. CT shows cholelithiasis. <Joan Roy - Last Filed: 04/26/18 12:46> Disposition - Disposition Disposition Time: 13:00 <Joan Roy - Last Filed: 04/26/18 12:46> <Lauryn Mayers - Last Filed: 04/26/18 16:29> - Disposition Condition: STABLE Forms: [employer] (Syriac) - Clinical Impression Clinical Impression: Abdominal pain - Scribe Statement The provider has reviewed the documentation as recorded by the Joeibe Payal Roque Provider Attestation: All medical record entries made by the Scribe were at my direction and personally dictated by me. I have reviewed the chart and agree that the record accurately reflects my personal performance of the history, physical exam, medical decision making, and the department course for this patient. I have also personally directed, reviewed, and agree with the discharge instructions and disposition. <Joan Roy - Last Filed: 04/26/18 12:46> Physician Patient Turnover Patient Signed Over To: Lauryn Mayers Handoff Comments: DARWIN ARNDT <Joan Roy - Last Filed: 04/26/18 12:46> Addendum Addendum: 04/26/18 16:28 Accession No. : [id number] Patient Name / ID : TRAVIS AUSTIN / [id number] Exam Date : 04/26/2018 14:24:59 ( Approved ) Study Comment : Sex / Age : M / 42Y Creator : Maria Luisa Melgar MD Dictator : Maria Luisa Melgar MD Bag Sealer : Vendette : Maria Luisa Melgar MD Approver2 : Report Date : 04/26/2018 15:17:34 My Comment : Date of service: 04/26/2018 HISTORY: r.o cholecystitis COMPARISON: CT abdomen pelvis without IV contrast performed 04/26/18 TECHNIQUE: Sonographic evaluation of the right upper quadrant of the abdomen. FINDINGS: LIVER: Measures 17.7 cm in length. Echogenic liver may be seen in setting of hepatic parenchymal disease or fatty infiltration. No focal hepatic mass identified. The main portal vein appears patent with normal directional flow. No in trahepatic bile duct dilatation. GALLBLADDER: Gallstones including immobile gallstone at the gallbladder neck. No gallbladder wall thickening or pericholecystic edema. Negative sonographic Lopes's sign as assessed by the airplane navigator. COMMON BILE DUCT: Measures 6 mm. PANCREAS: Not well-visualized. RIGHT KIDNEY: Measures approximately 11.0 x 4.5 x 4.6 cm. No obstructing calculus or hydrone phrosis. AORTA: Limited visualization appears grossly unremarkable. IVC: Not well-visualized. OTHER FINDINGS: None . IMPRESSION: Echogenic liver may be seen in setting of hepatic parenchymal disease or fatty infiltration. Cholelithiasis including immobile gallstone at the level the gallbladder neck. <Lauryn Mayers - Last Filed: 04/26/18 16:29>
[2018-04-26] MEDS ORDERED: Barium Sulfate Susp 2.1% w/v, 2.0% w/w 450 mL Bottle PO ONE ×2 (09:25→11:08)
[2018-04-26 09:43] LABS: BASO # 0.1 K/uL (0.0-0.2); BASO % 1.1 % (0.0-2.0); EOS # 0.6 K/uL (0.0-0.7); EOS % 8.7 % (0.0-4.0); HEMOGLOBIN 14.8 g/dL (12.0-18.0); LYMPH # 1.5 K/uL (1.0-4.3); LYMPH % 23.4 % (20.0-40.0); MEAN CORPUSCULAR HGB CONC 34.1 g/dL (33.0-37.0); MONO # 0.4 K/uL (0.0-0.8); MONO % 6.6 % (0.0-10.0); NEUT # 3.8 K/uL (1.8-7.0); NEUT % 60.2 % (50.0-75.0); RBC 4.93 Mil/uL (4.40-5.90); RED CELL DISTRIBUTION WIDTH 13.4 % (11.5-14.5); WHITE BLOOD COUNT 6.4 K/uL (4.8-10.8)
[2018-04-26] MEDS ORDERED: Morphine 4 MG/ML VIAL ONE (09:48)
[2018-04-26] MEDS ORDERED: Barium Sulfate Susp 60% w/v, 41% w/w 355 ml Bottle PO ONE (09:50)
[2018-04-26 09:57] LABS: ALB/GLOB RATIO 1.3 (1.0-2.1); ALBUMIN 4.3 g/dL (3.5-5.0); ALT/SGPT 62 U/L (21-72); AST/SGOT 69 U/L (17-59); BLOOD UREA NITROGEN 24 mg/dL (9-20); CALCIUM 9.1 mg/dl (8.6-10.4); GFR NON-AFRICAN AMERICAN > 60; LIPASE 82 U/L (23-300)
--- NOTE | 2018-04-26 12:27 | CT ---
PROCEDURE: CT Abdomen and Pelvis without IV contrast. HISTORY: abd pain RO OBSTRUCTION COMPARISON: CT abdomen and pelvis without contrast performed 11/08/17 TECHNIQUE: Contiguous axial images of the abdomen and pelvis. Oral contrast was administered. No IV contrast given. Coronal and Sagittal reformats generated and reviewed. Radiation dose: Total exam DLP = 756.33 mGy-cm. This CT exam was performed using one or more of the following dose reduction techniques: Automated exposure control, adjustment of the mA and/or kV according to patient size, and/or use of iterative reconstruction technique. FINDINGS: There is limited evaluation of the solid organs without the administration of IV contrast. LOWER THORAX: No visible consolidation, pleural effusion, or pneumothorax. Visualized portions of the heart appear within normal limits of size. LIVER: Unremarkable unenhanced appearance. GALLBLADDER AND BILE DUCTS: Cholelithiasis. PANCREAS: Unremarkable unenhanced appearance. SPLEEN: Unremarkable unenhanced appearance. ADRENALS: Unremarkable unenhanced appearance. KIDNEYS AND URETERS: No hydronephrosis or obstructing renal calculus. BLADDER: The urinary bladder appears unremarkable. REPRODUCTIVE: Unremarkable. APPENDIX: The appendix is not identified. No secondary signs of acute appendicitis. BOWEL: The stomach is nondistended. The bowel loops appear within normal limits of caliber without evidence of intestinal obstruction. PERITONEUM: No significant free fluid. No definite free air. LYMPH NODES: No bulky lymphadenopathy identified. VASCULATURE: No aortic aneurysm. BONES: Degenerative changes of the spine. OTHER FINDINGS: None. IMPRESSION: Cholelithiasis.
--- NOTE | 2018-04-26 15:21 | US ---
Date of service: 04/26/2018 HISTORY: r.o cholecystitis COMPARISON: CT abdomen pelvis without IV contrast performed 04/26/18 TECHNIQUE: Sonographic evaluation of the right upper quadrant of the abdomen. FINDINGS: LIVER: Measures 17.7 cm in length. Echogenic liver may be seen in setting of hepatic parenchymal disease or fatty infiltration. No focal hepatic mass identified. The main portal vein appears patent with normal directional flow. No intrahepatic bile duct dilatation. GALLBLADDER: Gallstones including immobile gallstone at the gallbladder neck. No gallbladder wall thickening or pericholecystic edema. Negative sonographic Lopes's sign as assessed by the mutual fund analyst. COMMON BILE DUCT: Measures 6 mm. PANCREAS: Not well-visualized. RIGHT KIDNEY: Measures approximately 11.0 x 4.5 x 4.6 cm. No obstructing calculus or hydronephrosis. AORTA: Limited visualization appears grossly unremarkable. IVC: Not well-visualized. OTHER FINDINGS: None . IMPRESSION: Echogenic liver may be seen in setting of hepatic parenchymal disease or fatty infiltration. Cholelithiasis including immobile gallstone at the level the gallbladder neck.
[2018-04-26 15:24] VITALS: RESP 18; TEMP 98.7; O2SAT 100
[2018-04-26 16:49] VITALS: BP 120/80; PULSE 72
--- NOTE | 2018-04-27 12:14 | CARD ---
APPROVED REPORT Date of service: 04/26/2018 EKG Measurement Heart [id number] <Conclusion> Normal sinus rhythm Normal ECG
== END 2018-04-26 17:20 | disposition home or self-care (01) ==
LOC: C.ER 08:26
DX: R10.13 Epigastric pain (principal)
CPT/HCPCS: 36415; 74176; 76705; 80053; 83690; 85025; 93005; 96374; 96375; 99285; J2270; J2405

== ENCOUNTER 2018-06-20 09:22 | Emergency (ER) | payer MEDICAID, OTHER ==
[2018-06-20 09:31] VITALS: BMI 28.3
[2018-06-20 09:34] VITALS: RESP 18
[2018-06-20 10:13] LABS: BASO # 0.1 K/uL (0.0-0.2); BASO % 0.7 % (0.0-2.0); EOS # 0.6 K/uL (0.0-0.7); EOS % 6.8 % (0.0-4.0); HEMOGLOBIN 14.6 g/dL (12.0-18.0); LYMPH # 1.7 K/uL (1.0-4.3); LYMPH % 20.6 % (20.0-40.0); MEAN CELL VOLUME 89.3 fL (80.0-94.0); MEAN CORPUSCULAR HEMOGLOBIN 29.8 pg (27.0-31.0); MEAN CORPUSCULAR HGB CONC 33.4 g/dL (33.0-37.0); MEAN PLATELET VOLUME 9.2 fL (7.2-11.7); MONO # 0.6 K/uL (0.0-0.8); NEUT # 5.4 K/uL (1.8-7.0); NEUT % 64.9 % (50.0-75.0); RBC 4.89 Mil/uL (4.40-5.90); RED CELL DISTRIBUTION WIDTH 12.9 % (11.5-14.5); WHITE BLOOD COUNT 8.2 K/uL (4.8-10.8)
[2018-06-20 10:25] LABS: SQUAMOUS EPITHIAL < 1 /hpf (0-5); URINE BILIRUBIN NEGATIVE (NEGATIVE); URINE BLOOD NEGATIVE (NEGATIVE); URINE CLARITY Clear (Clear); URINE COLOR Yellow (YELLOW); URINE GLUCOSE (UA) NORMAL (Normal); URINE HYALINE CAST 0-2 /lpf (0-2); URINE LEUKOCYTE ESTERASE NEG Leu/uL (Negative); URINE PROTEIN 2+ mg/dL (NEGATIVE); URINE UROBILINOGEN NORMAL mg/dL (0.2-1.0)
[2018-06-20 10:31] LABS: ALB/GLOB RATIO 1.2 (1.0-2.1); ALBUMIN 4.1 g/dL (3.5-5.0); ALT/SGPT 63 U/L (21-72); AST/SGOT 42 U/L (17-59); BLOOD UREA NITROGEN 27 mg/dL (9-20); CALCIUM 9.1 mg/dl (8.6-10.4); GFR NON-AFRICAN AMERICAN > 60; LIPASE 43 U/L (23-300)
--- NOTE | 2018-06-20 11:14 | RAD ---
HISTORY: abd pain COMPARISON: Chest x-ray performed 06/10/18 TECHNIQUE: Chest, one view. FINDINGS: Hypoinflation. LUNGS: Right middle lobe consolidation consistent with pneumonia. Please note that chest x-ray has limited sensitivity for the detection of pulmonary masses. PLEURA: No significant pleural effusion identified. No definite pneumothorax . CARDIOVASCULAR: Heart size appears top normal. No significant atherosclerotic calcification present. OSSEOUS STRUCTURES: Degenerative changes. VISUALIZED UPPER ABDOMEN: Unremarkable. OTHER FINDINGS: None. IMPRESSION: Right middle lobe consolidation consistent with pneumonia. Hypoinflation.
[2018-06-20 11:41] VITALS: BP 116/79; PULSE 87; TEMP 98.9; O2SAT 95
--- NOTE | 2018-06-20 12:17 | C.PDOC ---
History Of Present Illness 42 years old male presents to ED for complaints of right lower back pain associated with non-productive cough that began 1 week ago. Patient describes symptoms worsen with movement and deep breaths. Patient admits to socially drinking. Denies fever, chills, nausea, vomiting, urinary symptoms, or any other complaints. Patient reports he had a cholecystectomy on Wednesday by doctor Sarmad Jacobs. Patient also reports taking tylenol for relief. Time Seen by Provider: 06/20/18 09:40 Chief Complaint (Nursing): Abdominal Pain History Per: Patient History/Exam Limitations: no limitations Onset/Duration Of Symptoms: Hrs Current Symptoms Are (Timing): Still Present Radiation Of Pain To:: Back Associated Symptoms: denies: Fever, Chills, Nausea, Vomiting, Diarrhea, Urinary Symptoms Exacerbating Factors: Cough Alleviating Factors: None Last Bowel Movement: Today Recent travel outside of the [place]: No Past Medical History Reviewed: Historical Data, Nursing Documentation, Vital Signs Vital Signs: Last Vital Signs Temp 98.9 F 06/20/18 11:40 Pulse 87 06/20/18 11:40 Resp 18 06/20/18 11:40 BP 116/79 06/20/18 11:40 Pulse Ox 95 06/20/18 11:40 - Medical History PMH: Gall Bladder Disease (removed GB) Surgical History: Appendectomy, Hernia Repair (20 years ago) - [facility] Procedures RESECTION OF GALLBLADDER, PERCUTANEOUS ENDOSCOPIC APPROACH (06/10/18) Family History: States: Unknown Family Hx - Social History Hx Alcohol Use: No (socially) Hx Substance Use: No - Immunization History Hx Tetanus Toxoid Vaccination: Yes Hx Influenza Vaccination: Yes Hx Pneumococcal Vaccination: Yes Review Of Systems Except As Marked, All Systems Reviewed And Found Negative. Respiratory: Positive for: Cough Musculoskeletal: Positive for: Back Pain (Right lower back ) Physical Exam - Physical Exam Appears: Non-toxic, No Acute Distress Skin: Normal Color, Warm, Dry, No Rash Head: Atraumatic, Normacephalic Eye(s): bilateral: Normal Inspection, PERRL, EOMI Oral Mucosa: Moist Neck: Normal ROM, Supple Chest: Symmetrical, No Tenderness Cardiovascular: Rhythm Regular, No Murmur Respiratory: No Rales, No Rhonchi, Other (Fake crackles of right base ) Gastrointestinal/Abdominal: Soft, No Guarding, No Rebound, Other (Port sight is clean, dry, intact, with no erythema, but diffuse tenderness around sight. ) Back: Other (Right lower back tenderness ) Extremity: Normal ROM Extremity: Bilateral: Atraumatic, Normal Color And Temperature, Normal ROM Pulses: Left Radial: Normal, Right Radial: Normal Neurological/Psych: Oriented x3, Normal Speech, Normal Motor, Normal Sensation Gait: Steady ED Course And Treatment - Laboratory Results Result Diagrams: 06/20/18 10:03 06/20/18 10:03 Lab Results: Total Bilirubin 0.6 mg/dL (0.2-1.3) 06/20/18 10:03 AST 42 U/L (17-59) 06/20/18 10:03 ALT 63 U/L (21-72) 06/20/18 10:03 Alkaline Phosphatase 106 U/L (38-126) 06/20/18 10:03 Total Protein 7.5 g/dL (6.3-8.3) 06/20/18 10:03 Albumin 4.1 g/dL (3.5-5.0) 06/20/18 10:03 Globulin 3.4 gm/dL (2.2-3.9) 06/20/18 10:03 Albumin/Globulin Ratio 1.2 (1.0-2.1) 06/20/18 10:03 Lipase 43 U/L (23-300) 06/20/18 10:03 Urine Color Yellow (YELLOW) 06/20/18 10:03 Urine Clarity Clear (Clear) 06/20/18 10:03 Urine pH 5.0 (5.0-8.0) 06/20/18 10:03 Ur Specific [place] 1.026 (1.003-1.030) 06/20/18 10:03 Urine Protein 2+ mg/dL (NEGATIVE) H 06/20/18 10:03 Urine Glucose (UA) Normal mg/dL (Normal) 06/20/18 10:03 Urine Ketones Negative mg/dL (NEGATIVE) 06/20/18 10:03 Urine Blood Negative (NEGATIVE) 06/20/18 10:03 Urine Nitrate Negative (NEGATIVE) 06/20/18 10:03 Urine Bilirubin Negative (NEGATIVE) 06/20/18 10:03 Urine Urobilinogen Normal mg/dL (0.2-1.0) 06/20/18 10:03 Ur Leukocyte Esterase Neg Beatriz/uL (Negative) 06/20/18 10:03 Urine WBC (Auto) 1 /hpf (0-5) 06/20/18 10:03 Urine RBC (Auto) < 1 /hpf (0-3) 06/20/18 10:03 Ur Squamous Epith Cells < 1 /hpf (0-5) 06/20/18 10:03 Hyaline Casts 0-2 /lpf (0-2) 06/20/18 10:03 O2 Sat by Pulse Oximetry: 95 (RA) Pulse Ox Interpretation: Normal - Other Rad CXR X-Ray: Viewed By Me, Read By Radiologist Interpretation: HISTORY: abd pain. COMPARISON: Chest x-ray performed 06/10/18. TECHNIQUE: Chest, one view. FINDINGS: Hypoinflation. LUNGS: Right middle lobe consolidation consistent with pneumonia. Please note that chest x-ray has limited sensitivity for the detection of pulmonary masses. PLEURA: No significant pleural effusion identified. No definite pneumothorax . CARDIOVASCULAR: Heart size appears top normal. No significant atherosclerotic calcification present. OSSEOUS STRUCTURES: Degenerative changes. VISUALIZED UPPER ABDOMEN: Unremarkable. OTHER FINDINGS: None. IMPRESSION: Right middle lobe consolidation consistent with pneumonia. Hypoinflation. Medical Decision Making Medical Decision Making: Plan: * Zithromax * Rocephine * Blood work * CXR * Urinalysis Disposition Counseled Patient/Family Regarding: Studies Performed, Diagnosis, Need For Followup - Disposition Referrals: [facility] [Outside] [facility] [Outside] Disposition: HOME/ ROUTINE Disposition Time: 12:17 Condition: STABLE Additional Instructions: GEOVANNA ROBLES, thank you for letting us take care of you today. Your provider was Chante Cho MD and you were treated for STOMACH/BACK PAIN. The emergency medical care you received today was directed at your acute symptoms. If you were prescribed any medication, please fill it and take as directed. It may take several days for your symptoms to resolve. Return to the Emergency Department if your symptoms worsen, do not improve, or if you have any other problems. Please contact your doctor or call one of the physicians/clinics you have been referred to that are listed on the Patient Visit Information form that is included in your discharge packet. Bring any paperwork you were given at discharge with you along with any medications you are taking to your follow up visit. Our treatment cannot replace ongoing medical care by a primary care provider outside of the emergency department. Thank you for allowing the [facility] team to be part of your care today. Prescriptions: Azithromycin [Zithromax] 250 mg PO DAILY #4 tab Instructions: Pneumonia, Adult (DC) Forms: Gen Discharge Inst Bulgarian, [facility] (Bulgarian) Print Language: ARABIC - POA Present On Arrival: None - Clinical Impression Clinical Impression: Pneumonia - Scribe Statement The provider has reviewed the documentation as recorded by the Joeibanushka Posada All medical record entries made by the Joeibanushka were at my direction and personally dictated by me. I have reviewed the chart and agree that the record accurately reflects my personal performance of the history, physical exam, medical decision making, and the department course for this patient. I have also personally directed, reviewed, and agree with the discharge instructions and disposition.
== END 2018-06-20 12:31 | disposition home or self-care (01) ==
LOC: C.ER 09:22
DX: J18.9 Pneumonia, unspecified organism (principal)

== ENCOUNTER 2018-09-21 09:05 | Emergency (ER) | payer MEDICAID, OTHER ==
[2018-09-21 09:05] VITALS: BMI 28.3
[2018-09-21 09:12] VITALS: TEMP 98
--- NOTE | 2018-09-21 10:41 | C.PDOC ---
History Of Present Illness 43-year-old male presents to the ED for evaluation of left knee pain after he sustained a mechanical fall yesterday. Patient states he twisted and fell onto the knee during the fall. Patient has been taking Tylenol at home for the pain. He denies head injury, LOC, extremity numbness/weakness, or any other injuries at this time. Time Seen by Provider: 09/21/18 09:15 Chief Complaint (Nursing): Lower Extremity Problem/Injury History Per: Patient History/Exam Limitations: no limitations Onset/Duration Of Symptoms: Hrs Current Symptoms Are (Timing): Still Present Additional History Per: Patient - Knee Description Of Injury: Twisted (left) Past Medical History Reviewed: Historical Data, Nursing Documentation, Vital Signs Vital Signs: Last Vital Signs Temp 98 F 09/21/18 09:11 Pulse 83 09/21/18 09:11 Resp 20 09/21/18 09:11 BP 122/83 09/21/18 09:11 Pulse Ox 99 09/21/18 09:11 - Medical History PMH: Gall Bladder Disease (removed GB) Surgical History: Appendectomy, Cholecystectomy, Hernia Repair (20 years ago) - [facility] Procedures RESECTION OF GALLBLADDER, PERCUTANEOUS ENDOSCOPIC APPROACH (06/10/18) Family History: States: Unknown Family Hx - Social History Hx Alcohol Use: No (socially) Hx Substance Use: No - Immunization History Hx Tetanus Toxoid Vaccination: Yes Hx Influenza Vaccination: Yes Hx Pneumococcal Vaccination: Yes Review Of Systems Except As Marked, All Systems Reviewed And Found Negative. Skin: Negative for: Lesions Neurological: Negative for: Weakness Physical Exam - Physical Exam Additional Physical Exam Comments: Constitutional: No acute distress. Head: Normocephalic. Atraumatic. Neck: Supple. Chest: No tenderness. Back: No CVA tenderness. Musculoskeletal: Tenderness to medio-lateral aspect of left knee and mild tenderness to left proximal fibula. Full ROM. No significant edema. Skin: No rash. Neurologic: Alert, no focal deficit. ED Course And Treatment O2 Sat by Pulse Oximetry: 99 (on RA) Pulse Ox Interpretation: Normal Medical Decision Making Medical Decision Making: Impression: 43 year old male with left knee pain s/p mechanical fall Plan: * Left knee XR * Left Tibia/Fibula XR * Toradol IM * reassess and disposition Progress: Left knee and Left Tib/Fib XR ordered and reviewed. Toradol IM administered. PROCEDURE: Radiographs of the left tibia and fibula. HISTORY: fall, pain at proximal fibula COMPARISON: None available. TECHNIQUE: Two views, frontal and lateral views obtained. FINDINGS: BONES: No acute displaced fracture. JOINT SPACES: No dislocation. OTHER FINDINGS: Soft tissues appear unremarkable. No evidence of radiopaque foreign body. IMPRESSION: No acute displaced fracture, dislocation, or significant joint effusion identified. If symptoms persist, or if there is continued clinical concern, x-ray follow-up in 7-10 days should be considered. PROCEDURE: Left Knee Radiographs. Three views HISTORY: fall, knee pain COMPARISON: None available FINDINGS: BONES: No acute displaced fracture. JOINTS: No dislocation. JOINT EFFUSION: No significant joint effusion. OTHER FINDINGS: None. IMPRESSION: No acute displaced fracture, dislocation, or significant joint effusion identified. If symptoms persist, or if there is continued clinical concern, x-ray follow-up in 7-10 days should be considered. Knee immobilizer, crutches, f/u Ortho, return to ED for worsening pain, fever, vomiting, dyspnea, or any other problem. Disposition - Disposition Referrals: Mimi Parham MD [Staff Provider] - Disposition: HOME/ ROUTINE Disposition Time: 11:45 Condition: GOOD Prescriptions: Ibuprofen [Motrin] 600 mg PO Q6 #25 tab Instructions: Knee Pain (DC) Forms: [facility] (Yi) - Clinical Impression Clinical Impression: Knee injury - Scribe Statement The provider has reviewed the documentation as recorded by the Scribe (Mariza Jacobs) Provider Attestation: All medical record entries made by the Scribe were at my direction and personally dictated by me. I have reviewed the chart and agree that the record accurately reflects my personal performance of the history, physical exam, medical decision making, and the department course for this patient. I have also personally directed, reviewed, and agree with the discharge instructions and disposition.
[2018-09-21 11:11] VITALS: RESP 18
--- NOTE | 2018-09-21 11:22 | RAD ---
PROCEDURE: Left Knee Radiographs. Three views HISTORY: fall, knee pain COMPARISON: None available FINDINGS: BONES: No acute displaced fracture. JOINTS: No dislocation. JOINT EFFUSION: No significant joint effusion. OTHER FINDINGS: None. IMPRESSION: No acute displaced fracture, dislocation, or significant joint effusion identified. If symptoms persist, or if there is continued clinical concern, x-ray follow-up in 7-10 days should be considered.
--- NOTE | 2018-09-21 11:27 | RAD ---
PROCEDURE: Radiographs of the left tibia and fibula. HISTORY: fall, pain at proximal fibula COMPARISON: None available. TECHNIQUE: Two views, frontal and lateral views obtained. FINDINGS: BONES: No acute displaced fracture. JOINT SPACES: No dislocation. OTHER FINDINGS: Soft tissues appear unremarkable. No evidence of radiopaque foreign body. IMPRESSION: No acute displaced fracture, dislocation, or significant joint effusion identified. If symptoms persist, or if there is continued clinical concern, x-ray follow-up in 7-10 days should be considered.
[2018-09-21 12:53] VITALS: BP 119/76; PULSE 69; O2SAT 97
== END 2018-09-21 12:52 | disposition home or self-care (01) ==
LOC: C.ER 09:05
DX: S89.92XA Unspecified injury of left lower leg, initial encounter (principal); W01.0XXA Fall on same level from slipping, tripping and stumbling without subsequent striking against object, initial encounter
CPT/HCPCS: 73562; 73590; 96372; 97116; 97161; 99285; G8978; G8979; G8980; J1885